=== PATIENT | male | born 1975 | race Caucasian/White ===

== ENCOUNTER 2023-10-20 11:26 | Emergency (ER) | payer MEDICARE, OTHER, SELFPAY ==
--- NOTE | 2023-10-20 12:41 | ED.GENMED ---
History of Present Illness
General
Chief Complaint: Substance Abuse
Source: patient and family
Exam Limitations: none
Time Seen by Provider: 10/20/23 12:31
Travel History
Have you had any contact with someone who has COVID-19?: No
Do you have any symptoms of coronavirus? Fever > 100 degrees, chills, cough, shortness of breath, sore throat, loss of taste or smell, muscle aches, or headache?: No
History of Present Illness
History of Present Illness:
See MDM
Past History
Past History
ED Past Medical History: Psychiatric
ED Past Surgical History: None
Social History
Tobacco: Non-smoker
Alcohol: None
Drug: IVDA
Phy Exam
Physical Exam
Physical Exam:
See MDM
Course
Orders/Labs/Results
Orders:
Orders
10/20/23 12:39
0.9% Sodium Chloride 1000 ml [Nss] 1,000 ml IV BOLUS
Lorazepam [Ativan] 1 mg IV NOW STA
10/20/23 12:41
Urine Drug Abuse Screen Urgent
10/20/23 13:18
Alcohol Urgent
CPK [Creatine Phosphokinase] Urgent
Complete Blood Count/With Diff Urgent
Comprehensive Metabolic Panel Urgent
10/20/23 13:43
Crisis Consult Urgent
Reason for Consult: drug abuse, off meds
Abnormal Lab Results
10/20/23
13:18
WBC 15.2 H 10^3/uL
(4.8-10.8)
Plt Count 458 H 10^3/uL
(130-400)
Absolute Neuts (auto) 9.4 H 10^3/uL
(1.4-6.5)
Absolute Lymphs (auto) 4.0 H 10^3/uL
(1.2-3.4)
Absolute Monos (auto) 1.6 H 10^3/uL
(0.1-0.6)
Monocytes % 10.7 H %
(1.7-9.3)
Creatinine 0.5 L mg/dL
(0.7-1.3)
Glucose 102 H mg/dl
(70-99)
AST 77 H U/L
(17-59)
ALT 64 H U/L
(0-50)
Creatine Kinase 1117 H U/L
(55-170)
10/20/23 13:18
10/20/23 13:18
Vital Signs
Initial and Last Documented VS:
Initial Vital Signs
Temp Pulse Resp Pulse Ox
98.7 F 111 20 98
10/20/23 11:30 10/20/23 11:30 10/20/23 11:30 10/20/23 11:30
Last Documented Vital Signs
Temp Pulse Resp BP Pulse Ox
98.7 F 81 25 87/62 96
10/20/23 11:30 10/20/23 15:02 10/20/23 15:02 10/20/23 15:02 10/20/23 15:02
MDM/Problems Addressed
Differential Diagnosis Includes:
HPI and MDM Narrative:
48-year-old male presenting with his brother for evaluation for rehab. Patient has been in and out the drug rehab. The brother believes he has a history of schizophrenia or schizoaffective disorder. Patient called his brother at 7 AM this
morning. He was missing for 4 [address] roaming the streets of [place] and using IV drugs. Patient states he was smoking crack and using IV meth. Patient is unsure the last time he took a drug. He states the last 4 days have blurred together.
Patient and family are looking for long-term rehab placement
On evaluation, patient has intermittent twitching to all 4 extremities. He appears to be going through mild withdrawal. He is answering questions appropriately. Patient appears to have been unable to care for himself over the past 4 days due to
his drug use. Will give IV fluids obtain basic blood work and discussed case with YEFRI
Physical exam
General: Intermittent twitching. Lying in bed appears to be going through mild withdrawal.
HEENT: Dry mucous membranes
Neck: supple
CV: No evidence of cyanosis. No murmur auscultated
Resp: No accessory muscle use
Abd: Non-distended
Extremities: Track paul noted to both upper extremities. No cellulitic changes or palpable abscess
Neuro: alert. No focal deficits
Psych: Mild irritability
Skin: Intact
Problems Addressed including Acute and Chronic Conditions affecting care:
1. Substance abuse disorder
Acuity: acute
Prognosis: stable
Details: Will have YEFRI evaluate. Will obtain basic blood work for medical clearance
Updates
12:50 PM YEFRI at bedside
1:30 PM Case rediscussed with YEFRI. YEFRI did reach out to the long-term facility that the patient's brother had mentioned. The long-term facility will not accept until patient is at his baseline. Patient has been off of his psych meds and
is currently not at baseline
2 PM patient has mild elevation of CPK but creatinine within normal limits. Will continue IV fluids
3:54 PM YEFRI updated me that patient excepted to [facility] and they will come within the next hour
Differential Diagnosis (but not limited to): Drug abuse disorder, dehydration, drug withdrawal
Testing considered: Tylenol and salicylate level but patient denies suicide attempts
Drug therapy (if applicable): OTC meds, please see d/c instruction regarding Rx drugs
Amount and/or Complexity of Data Reviewed
Clinical info obtained from: Patient. Brother at bedside states he has been in and out of rehab
External data reviewed: N/A
Labs I independently reviewed (but not limited to): elevated CPK
Radiology: N/A
Pulse Ox: not hypoxic
EKG independently reviewed: N/A
Retail Pharmacy Manager: N/A
Critical Care: N/A
Risk of Complication:
Social Determinants of health: Good social support
Discussed with other providers: N/A
Escalation of Care includes Admit/Obs: After being observed in the Emergency Department, pt stable for transfer to rehab
Occasional wrong word or 'sound a like' substitutions may have occurred due to the inherent limitations of voice recognition software. Read the chart carefully and recognize, using context, where substitutions have occurred.
*Critical Care Note
Total Time (30-74mins, 75-104mins- exclusive of procedures): Not Applicable
ED Attending Note
-
Portions of this chart may have been created with voice recognition software.� Occasional wrong word or��sound alike� substitutions may have occurred due to the inherent limitations of voice recognition software.
Discharge Plan
Departure
Patient Disposition: Acute Rehab Facility
Date of Disposition: 10/20/23
Time of Disposition: 14:50
Patient with high blood pressure during this ER visit?: No
Discharge Problem:
Moderate substance use disorder
Referrals:
Beth Gonzales DO [Family Provider] -
Activity Restrictions/Additional Instructions:
Sebastian Kent is medically stable and cleared for rehab.
Interventions
Interventions:
*Risk Screen - Suicide Last Done: 10/20/23 12:59
*General Assessment Last Done: 10/20/23 12:59
*Neglect/Abuse Screening Last Done: 10/20/23 12:59
ED- Fall Risk Assessment Last Done: 10/20/23 12:59
*ED COVID-19 Vaccine History Last Done: 10/20/23 11:30
ED-Psychological Assessment Last Done: 10/20/23 12:59
Discharge Date and Time
Print Language: LATVIAN
[2023-10-20 12:59] VITALS: BMI 28.1
[2023-10-20 13:26] LABS: % Basophils 0.5 % (0-2); % Eosinophils 0.7 % (0-6); % Immature Granulocytes 0.3 % (0-0.5); % Lymphocytes 26.2 % (20.5-51.1); % Monocytes 10.7 % (1.7-9.3); % Neutrophils 61.6 % (42.2-75.2); Absolute Basophils 0.1 10^3/uL (0-0.2); Absolute Eosinophils 0.1 10^3/uL (0-0.7); Absolute Monocytes 1.6 10^3/uL (0.1-0.6); Absolute Neutrophils 9.4 10^3/uL (1.4-6.5); Hematocrit 40.8 % (39.0-52.0); Hemoglobin 14.7 g/dL (13.0-18.0); Mean Corpuscular Hgb 28.8 pg (27.0-31.0); Mean Platelet Volume 10.4 fL (7.4-10.4); Nucleated Red Blood Cells % 0 % (-); Platelet Count 458 10^3/uL (130-400); Red Cell Dist. Width 13.2 % (11.5-14.5); White Blood Cell Count 15.2 10^3/uL (4.8-10.8)
[2023-10-20] MEDS: NSS 1000 IV (13:27)
[2023-10-20] MEDS: ATIVAN 1 MG IV (13:28)
[2023-10-20 13:44] LABS: ALT (SGPT) 64 U/L (0-50); AST (SGOT) 77 U/L (17-59); Albumin 4.7 g/dl (3.5-5.0); Alkaline Phosphatase 78 U/L (38-126); Blood Urea Nitrogen 14 mg/dl (9-20); Calcium 9.6 mg/dl (8.4-10.2); Carbon Dioxide 29 mmol/L (22-30); Chloride 99 mmol/L (98-107); Creatine Phosphokinase 1117 U/L (55-170); Estimated Creatinine Clearance > 125 ml/min; Glucose 102 mg/dl (70-99); Potassium 3.5 mmol/L (3.5-5.1); Sodium 135 mmol/L (135-145); Total Bilirubin 1.3 mg/dl (0.2-1.3); Total Protein 8.2 g/dl (6.3-8.2); eGFR > 60.00
[2023-10-20 13:48] LABS: Alcohol None Detected
[2023-10-20 14:02] VITALS: BP 110/53
[2023-10-20 15:02] VITALS: BP 87/62
[2023-10-20 16:37] VITALS: BP 106/55
== END 2023-10-20 16:50 ==
LOC: EMR 11:26
PROVIDERS: EMERGENCY PHYSICIAN Student in an Organized Health Care Education/Training Program; FAMILY PHYSICIAN Family Medicine
DX: F14.90 Cocaine use, unspecified, uncomplicated (principal); F15.90 Other stimulant use, unspecified, uncomplicated; R25.3 Fasciculation; R45.4 Irritability and anger
CPT/HCPCS: 99285; 96374; 96361; 80053; 82077; 82550; 85025